=== PATIENT | female | born 1940 | race African-American/Black ===

== ENCOUNTER 2020-03-10 13:35 | Observation (INO) | payer BC ==
[~2020-03-10] VITALS: Ht 165.1 cm; Wt 44.9 kg
[2020-03-10 13:50] VITALS: BP 135/65
--- NOTE | 2020-03-10 14:34 | Emergency Room Report ---
History of Present Illness General Chief Complaint: Generalized Weakness Source: Patient Present Illness HPI Apparently the patient has been deteriorating over the last month. She is not been eating well and losing weight. She is by herself. On Sunday she fell and was unable to get up from the floor. She refused to go into the hospital at that time. She was evaluated by paramedics and they said that her blood pressure may have been a problem. There is no evidence of head injury at that time. Her son and his took her in and has been watching over her. Today she was weak and when he sat her up her eyes rolled back and she lost consciousness. He lay her back down. Paramedics were summoned. She was orthostatic not by measured blood pressure but she almost passed out with her sitting her up. Son denies chest pain, fevers, nausea, vomiting or diarrhea. She moved her bowels twice yesterday with no problem. She is now complaining of dysuria and she has been urinating. He noted that she is had some pallor. Today was first time c/o lower back pain. She is complained of right shoulder pain for 2 years. Son notes decreased recent memory over the past 1 year or longer. History of hypertension Allergies: Coded Allergies: No Known Allergies (Unverified , 03/10/20) COVID-19 Screening Contact w/high risk pt: No Experienced COVID-19 symptoms?: No COVID-19 Testing performed CIRCUS RIDER: No Patient History Past Medical History: see triage record Social History: Denies: smoking, alcohol use, drug use Social History Narrative lives by herself Reviewed Nursing Documentation: PMH: Agreed; PSxH: Agreed Nursing Documentation-PMH Hx Hypertension: Yes Review of Systems All Other Systems: negative except mentioned in HPI Physical Exam Vital Signs Date Time Temp Pulse Resp B/P (MAP) Pulse Ox O2 Delivery O2 Flow Rate FiO2 03/10/20 13:31 97.3 73 16 135/65 (88) 96 Room Air Sp02 EP Interpretation: reviewed, normal General Appearance: no apparent distress, alert, thin, other - Frail eyes closed Head: normocephalic Eyes: bilateral eye PERRL, bilateral eye conjunctivae pale ENT: dry mucus membranes Neck: supple Respiratory: lungs clear, normal breath sounds Cardiovascular #1: regular rate, rhythm Cardiovascular #2: 2+ radial (R) Gastrointestinal: normal inspection, normal bowel sounds, non tender, no mass, non-distended Rectal: heme negative stool Musculoskeletal: back normal, normal range of motion, gait/station normal Neurologic: alert, sql bi developer III-XII nml as tested - X2, oriented, sensory intact, cerebellar normal, speech normal, other - Prefers eyes closed Psychiatric: depressed affect - Initially put in improved Skin: no rash, warm/dry, other - Some pallor Medical Decision Making Diagnostic Impression: Primary Impression: Syncope Qualified Codes: R55 - Syncope and collapse Additional Impressions: Failure to thrive Qualified Codes: R62.7 - Adult failure to thrive Declining functional status Elevated TSH ER Course Patient presents post syncopal episode and functional decline. Differential includes dehydration, acute myocardial infarction, anemia, occult infection amongst others. Evaluation with EKG, chest x-ray and labs. Patient will receive IV hydration. Patient placed on a security monitor. EKG normal sinus rhythm biatrial enlargement right bundle branch block rate of 68. CXR granulomatous disease. CBC normal WBC and H/H. CMP with elevated BUN 20, creat 1.1. K slightly low. Improved mentation with IV hydration. CT with small vessel disease. 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 Family request influenza vaccination. Ordered. Discussed need for social insurance administrator - consult ordered. Patient admitted to the hospital for further cardiac monitoring and evaluation. Patient examined by Dr. Navas in the emergency department. Laboratory Tests Test 03/10/20 13:49 03/10/20 13:50 03/10/20 14:50 03/10/20 17:05 POC Whole Blood Glucose 117 MG/DL (74-106) H White Blood Count 3.3 K/UL (4.8-10.8) L Red Blood Count 4.18 M/UL (4.20-5.40) L Hemoglobin 13.1 G/DL (12.0-16.0) Hematocrit 41.1 % (37.0-47.0) Mean Corpuscular Volume 98 FL (80-99) Mean Corpuscular Hemoglobin 31.4 PG (27.0-31.0) H Mean Corpuscular Hemoglobin Concent 31.9 G/DL (32.0-36.0) L Red Cell Distribution Width 12.0 % (11.6-14.8) Platelet Count 213 K/UL (150-450) Mean Platelet Volume 7.3 FL (6.5-10.1) Neutrophils (%) (Auto) % (45.0-75.0) Lymphocytes (%) (Auto) % (20.0-45.0) Monocytes (%) (Auto) % (1.0-10.0) Eosinophils (%) (Auto) % (0.0-3.0) Basophils (%) (Auto) % (0.0-2.0) Differential Total Cells Counted 100 Neutrophils % (Manual) 50 % (45-75) Lymphocytes % (Manual) 40 % (20-45) Monocytes % (Manual) 9 % (1-10) Eosinophils % (Manual) 1 % (0-3) Basophils % (Manual) 0 % (0-2) Band Neutrophils 0 % (0-8) Platelet Estimate Adequate Platelet Morphology Normal Red Blood Cell Morphology Normal Prothrombin Time 10.6 SEC (9.30-11.50) Prothrombin Time INR 1.0 (0.9-1.1) Activated Partial Thromboplast Time 22 SEC (23-33) L D-Dimer 0.72 mg/L FEU (0.00-0.49) H Sodium Level 131 MMOL/L (136-145) L Potassium Level 3.3 MMOL/L (3.5-5.1) L Chloride Level 95 MMOL/L (98-107) L Carbon Dioxide Level 29 MMOL/L (21-32) Anion Gap 7 mmol/L (5-15) Blood Urea Nitrogen 20 mg/dL (7-18) H Creatinine 1.1 MG/DL (0.55-1.30) Estimated Glomerular Filtration Rate 58.1 mL/min (>60) Glucose Level 123 MG/DL (74-106) H Lactic Acid Level 1.50 mmol/L (0.4-2.0) Calcium Level 9.0 MG/DL (8.5-10.1) Ferritin 95 NG/ML (8-388) Total Bilirubin 0.6 MG/DL (0.2-1.0) Aspartate Amino Transferase (AST) 23 U/L (15-37) Alanine Aminotransferase (ALT) 22 U/L (12-78) Alkaline Phosphatase 44 U/L (46-116) L Lactate Dehydrogenase 185 U/L (81-234) Total Creatine Kinase 156 U/L (26-308) Creatine Kinase MB 2.4 NG/ML (0.0-3.6) Creatine Kinase MB Relative Index 1.5 Troponin I 0.000 ng/mL (0.000-0.056) C-Reactive Protein, Quantitative < 0.4 mg/dL (0.00-0.90) Pro-B-Type Natriuretic Peptide 60 pg/mL (0-125) Total Protein 7.2 G/DL (6.4-8.2) Albumin 3.7 G/DL (3.4-5.0) Globulin 3.5 g/dL Albumin/Globulin Ratio 1.1 (1.0-2.7) Lipase 163 U/L (73-393) Stool Occult Blood Negative (NEGATIVE) Urine Color Pale yellow Urine Appearance Slightly cloudy Urine pH 7 (4.5-8.0) Urine Specific [place] 1.010 (1.005-1.035) Urine Protein Negative (NEGATIVE) Urine Glucose (UA) Negative (NEGATIVE) Urine Ketones 2+ (NEGATIVE) H Urine Blood Negative (NEGATIVE) Urine Nitrite Negative (NEGATIVE) Urine Bilirubin Negative (NEGATIVE) Urine Urobilinogen Normal MG/DL (0.0-1.0) Urine Leukocyte Esterase 2+ (NEGATIVE) H Urine RBC 0-2 /HPF (0 - 2) Urine WBC 2-4 /HPF (0 - 2) Urine Squamous Epithelial Cells Occasional /LPF Urine Bacteria Occasional /HPF (NONE) Microbiology Date/Time Source Procedure Growth Status 03/10/20 13:50 Nasopharynx SARS-CoV-2 RdRp Gene Assay - Final Complete EKG Diagnostic Results Rate: normal Rhythm: NSR ST Segments: no acute changes - Right bundle branch block and left atrial enlargement Rhythm Strip Diag. Results EP Interpretation: yes Rhythm: NSR, no PVC's, no ectopy Chest X-Ray Diagnostic Results Chest X-Ray Diagnostic Results : Chest X-Ray Ordered: Yes # of Views/Limited/Complete: 1 View Indication: Other EP Interpretation: Yes Interpretation: no consolidation, no effusion, no pneumothorax Impression: No acute disease Electronically Signed by: Electronically signed by Franklyn Aguero MD CT/MRI/US Diagnostic Results CT/MRI/US Diagnostic Results #1: Imaging Test Ordered: Head Impression Small vessel disease CT/MRI/US Diagnostic Results #2: Imaging Test Ordered: Lumbar spine Impression Degenerative disease no fractures Last Vital Signs Date Time Temp Pulse Resp B/P (MAP) Pulse Ox O2 Delivery O2 Flow Rate FiO2 11/25/20 20:00 76 03/10/20 18:15 97.3 19 112/52 100 Room Air Status: improved Disposition: ADMITTED INPATIENT Condition: Serious Franklyn Aguero MD Mar 10, 2020 14:34
[2020-03-10 14:42] LABS: HEMATOCRIT 41.1 % (37.0-47.0); HEMOGLOBIN 13.1 G/DL (12.0-16.0); MEAN CORPUSCULAR VOLUME 98 FL (80-99); PLATELET COUNT 213 K/UL (150-450); RED BLOOD COUNT 4.18 M/UL (4.20-5.40); WHITE BLOOD COUNT 3.3 K/UL (4.8-10.8)
[2020-03-10 14:48] LABS: ANION GAP 7 mmol/L (5-15); BLOOD UREA NITROGEN 20 mg/dL (7-18); CARBON DIOXIDE 29 MMOL/L (21-32); CHLORIDE 95 MMOL/L (98-107); CREATININE 1.1 MG/DL (0.55-1.30); POTASSIUM 3.3 MMOL/L (3.5-5.1); SODIUM 131 MMOL/L (136-145)
[2020-03-10 14:54] VITALS: BP 135/65
[2020-03-10 15:04] LABS: ALANINE AMINOTRANSFERASE 22 U/L (12-78); ALBUMIN 3.7 G/DL (3.4-5.0); ALBUMIN/GLOBULIN RATIO 1.1 (1.0-2.7); ALKALINE PHOSPHATASE 44 U/L (46-116); ASPARTATE AMINO TRANSFERASE 23 U/L (15-37); BILIRUBIN,TOTAL 0.6 MG/DL (0.2-1.0); CKMB 2.4 NG/ML (0.0-3.6); CREATINE KINASE 156 U/L (26-308); FERRITIN 95 NG/ML (8-388); LACTATE DEHYDROGENASE 185 U/L (81-234)
[2020-03-10] MEDS ORDERED: NS w/KCl 40mEq 1,000 ML IV SCH (15:30)
[2020-03-10 16:00] VITALS: BP 140/57
--- NOTE | 2020-03-10 16:49 | Diagnostic Imaging Report ---
Indication: Shortness of breath Technique: One view of the chest Comparison: 12/07/2009 Findings: Calcified granulomata at the right lung base are again demonstrated. Lungs pleural spaces are otherwise clear. The heart size is normal. There is tortuous and calcified Impression: No acute process Evidence of old granulomatous disease
--- NOTE | 2020-03-10 16:54 | Diagnostic Imaging Report ---
Indication: Syncope Technique: spiral acquisitions obtained through the brain. Angled axial and coronal 5 x 5 mm slices were reconstructed. No IV contrast utilized. Radiation dose was minimized using automated exposure control Total dose length product 955 mGycm. CTDIvol(s) 53 mGy Comparison: none FINDINGS: No acute hemorrhage or edema. No mass effect or midline shift. There is age-related enlargement of the ventricles and extra axial CSF spaces. There is periventricular deep white matter ischemic change. Normal [place]-white differentiation. There is evidence of prior bilateral cataract surgery. Visualized sinuses are unremarkable. Intact calvarium. IMPRESSION: Chronic and age-related changes. Negative for acute intracranial bleed or mass effect The CT scanner at [facility] [place] is accredited by the [employer] and the scans are performed using protocols designed to limit radiation exposure to as low as reasonably achievable to attain images of sufficient resolution adequate for diagnostic evaluation
[2020-03-10] MEDS ORDERED: METOPROLOL TART25 MG ORAL (16:56)
--- NOTE | 2020-03-10 16:58 | Diagnostic Imaging Report ---
Indications: Pain, trauma Technique: Spiral acquisitions obtained through the lumbar spine. Multiplanar reconstructions were generated. No IV contrast utilized. Total dose length product 207 mGycm. CTDIvol(s) 5 mGy. Dose reduction achieved using automated exposure control Comparison: none Findings: There is mild anterior offset of L4 on L5 and of L5 on S1. Otherwise normal bony alignment. No acute fractures. No dislocation. Vertebral body heights are preserved. There is mild degenerative proliferative disc disease with vacuum formation at multiple levels. At L2-3, there is mild circumferential annular bulge with posterior osteophyte complex. This does not significantly narrow the spinal canal or the neural foramina. At L3-4 and L4-5 there is bilateral facet arthrosis. No significant spinal canal or neural foraminal stenosis. At L5-S1, there is bilateral facet arthrosis. No significant neural foraminal stenosis or spinal canal stenosis. The bladder is distended. Calcifications are seen within the uterus, likely multiple fibroids. There is mild rectal distention by feces., there is circumferential annular bulge with posterior osteophytes. Impression: No acute bony trauma Mild degenerative changes, as detailed above Distended bladder The CT scanner at [facility] is accredited by the [employer] and the scans are performed using protocols designed to limit radiation exposure to as low as reasonably achievable to attain images of sufficient resolution adequate for diagnostic evaluation.
[2020-03-10 17:13] LABS: APPEARANCE,URINE SLIGHTLY CLOUDY; BILIRUBIN, URINE NEGATIVE (NEGATIVE); COLOR,URINE PALE YELLOW; GLUCOSE, URINE (UA) NEGATIVE (NEGATIVE); KETONES,URINE 2+ (NEGATIVE); LEUKOCYTE ESTERASE ,URINE 2+ (NEGATIVE); NITRITE,URINE NEGATIVE (NEGATIVE); PH,URINE 7 (4.5-8.0); PROTEIN,URINE NEGATIVE (NEGATIVE); UROBILINOGEN,URINE NORMAL MG/DL (0.0-1.0)
[2020-03-10 17:22] VITALS: BP 128/57
[2020-03-10] MEDS ORDERED: Flu Vaccine Quadrivalent IM ONE (17:30)
[2020-03-10] MEDS ORDERED: Flu Vac High-Dose for Pts 65 Years and Older IM ONE (18:00)
[2020-03-10] MEDS ORDERED: Nitroglycerin Subl 0.4mg tab SL PRN (18:40)
--- NOTE | 2020-03-10 18:40 | History & Physical ---
Misael Navas MD Mar 10, 2020 18:40
--- NOTE | 2020-03-10 18:44 | History and Physical ---
History of Present Illness General Date patient seen: Mar 10, 2020 Time patient seen: 18:00 Reason for Hospitalization: Generalized Weakness Present Illness HPI 79 y/o AA Female pt BIBA from home for generalized weakness x 3 days. Per ED report, the pt reported that she had a syncopal episode lasting a "few seconds" 3 days ago. she recently moved in with family and states that family witnessed the syncopal episode. EMS report that pt had a near syncopal episode when the tried to sit her up. pt denies any head trauma or injury. pt denied N/V/D, has also had decreased appetite x3 days. pt is AOx3, states that she feels "very tired." Initial workup in the ED showed EKG with RBBB and no STT changes or high degree EKG. Admission was requested. The patient denies any prior cardiac history, no CT, no CVA, no CHF. She does endorse weakness and poor appetite in the recent days. Allergies: Coded Allergies: No Known Allergies (Unverified , 03/10/20) COVID-19 Screening Contact w/high risk pt: No Experienced COVID-19 symptoms?: No Medication History Scheduled Metoprolol Tartrate* (Metoprolol Tartrate*), 25 MG ORAL EVERY 12 HOURS, (Re ported) Patient History Healthcare decision maker Resuscitation status Advanced Directive on File Review of Systems All Other Systems: negative except mentioned in HPI Physical Exam General Appearance: WD/WN, no apparent distress Lines, tubes and drains: peripheral HEENT: normocephalic Neck: non-tender Respiratory/Chest: lungs clear Cardiovascular/Chest: normal peripheral pulses Abdomen: non tender Skin Exam: normal pigmentation Neurologic: rat breeder II-XII 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 normal Last 24 Hour Vital Signs Date Time Temp Pulse Resp B/P (MAP) Pulse Ox O2 Delivery O2 Flow Rate FiO2 03/10/20 18:15 97.3 85 19 112/52 100 Room Air 03/10/20 17:22 97.3 70 18 128/57 100 Room Air 03/10/20 16:00 97.3 75 19 140/57 100 Room Air 03/10/20 13:50 73 16 Room Air 03/10/20 13:50 97.3 86 16 135/65 96 Room Air 03/10/20 13:31 97.3 73 16 135/65 (88) 96 Room Air Laboratory Tests Test 03/10/20 13:49 03/10/20 13:50 03/10/20 14:50 03/10/20 17:05 POC Whole Blood Glucose 117 MG/DL (74-106) H White Blood Count 3.3 K/UL (4.8-10.8) L Red Blood Count 4.18 M/UL (4.20-5.40) L Hemoglobin 13.1 G/DL (12.0-16.0) Hematocrit 41.1 % (37.0-47.0) Mean Corpuscular Volume 98 FL (80-99) Mean Corpuscular Hemoglobin 31.4 PG (27.0-31.0) H Mean Corpuscular Hemoglobin Concent 31.9 G/DL (32.0-36.0) L Red Cell Distribution Width 12.0 % (11.6-14.8) Platelet Count 213 K/UL (150-450) Mean Platelet Volume 7.3 FL (6.5-10.1) Neutrophils (%) (Auto) % (45.0-75.0) Lymphocytes (%) (Auto) % (20.0-45.0) Monocytes (%) (Auto) % (1.0-10.0) Eosinophils (%) (Auto) % (0.0-3.0) Basophils (%) (Auto) % (0.0-2.0) Differential Total Cells Counted 100 Neutrophils % (Manual) 50 % (45-75) Lymphocytes % (Manual) 40 % (20-45) Monocytes % (Manual) 9 % (1-10) Eosinophils % (Manual) 1 % (0-3) Basophils % (Manual) 0 % (0-2) Band Neutrophils 0 % (0-8) Platelet Estimate Adequate Platelet Morphology Normal Red Blood Cell Morphology Normal Prothrombin Time 10.6 SEC (9.30-11.50) Prothromb Time International Ratio 1.0 (0.9-1.1) Activated Partial Thromboplast Time 22 SEC (23-33) L D-Dimer 0.72 mg/L FEU (0.00-0.49) H Sodium Level 131 MMOL/L (136-145) L Potassium Level 3.3 MMOL/L (3.5-5.1) L Chloride Level 95 MMOL/L (98-107) L Carbon Dioxide Level 29 MMOL/L (21-32) Anion Gap 7 mmol/L (5-15) Blood Urea Nitrogen 20 mg/dL (7-18) H Creatinine 1.1 MG/DL (0.55-1.30) Estimat Glomerular Filtration Rate 58.1 mL/min (>60) Glucose Level 123 MG/DL (74-106) H Lactic Acid Level 1.50 mmol/L (0.4-2.0) Calcium Level 9.0 MG/DL (8.5-10.1) Ferritin 95 NG/ML (8-388) Total Bilirubin 0.6 MG/DL (0.2-1.0) Aspartate Amino Transf (AST/SGOT) 23 U/L (15-37) Alanine Aminotransferase (ALT/SGPT) 22 U/L (12-78) Alkaline Phosphatase 44 U/L (46-116) L Lactate Dehydrogenase 185 U/L (81-234) Total Creatine Kinase 156 U/L (26-308) Creatine Kinase MB 2.4 NG/ML (0.0-3.6) Creatine Kinase MB Relative Index 1.5 Troponin I 0.000 ng/mL (0.000-0.056) C-Reactive Protein, Quantitative < 0.4 mg/dL (0.00-0.90) Pro-B-Type Natriuretic Peptide 60 pg/mL (0-125) Total Protein 7.2 G/DL (6.4-8.2) Albumin 3.7 G/DL (3.4-5.0) Globulin 3.5 g/dL Albumin/Globulin Ratio 1.1 (1.0-2.7) Lipase 163 U/L (73-393) Thyroid Stimulating Hormone (TSH) 6.115 uiU/mL (0.358-3.740) Stool Occult Blood Negative (NEGATIVE) Urine Color Pale yellow Urine Appearance Slightly cloudy Urine pH 7 (4.5-8.0) Urine Specific [place] 1.010 (1.005-1.035) Urine Protein Negative (NEGATIVE) Urine Glucose (UA) Negative (NEGATIVE) Urine Ketones 2+ (NEGATIVE) H Urine Blood Negative (NEGATIVE) Urine Nitrite Negative (NEGATIVE) Urine Bilirubin Negative (NEGATIVE) Urine Urobilinogen Normal MG/DL (0.0-1.0) Urine Leukocyte Esterase 2+ (NEGATIVE) H Urine RBC 0-2 /HPF (0 - 2) Urine WBC 2-4 /HPF (0 - 2) Urine Squamous Epithelial Cells Occasional /LPF Urine Bacteria Occasional /HPF (NONE) Microbiology Date/Time Source Procedure Growth Status 03/10/20 13:50 Nasopharynx SARS-CoV-2 RdRp Gene Assay - Final Complete Height (Feet): 5 Height (Inches): 6.00 Weight (Pounds): 110 Medications Current Medications Medications (Trade) Dose Ordered Sig/Julissa Route PRN Reason Start Time Stop Time Status Last Admin Dose Admin Acetaminophen (Tylenol) 650 mg Q4H PRN ORAL Mild Pain (Pain Scale 1-3) 03/10/20 18:30 04/09/20 18:29 UNV Acetaminophen (Tylenol) 650 mg Q4H PRN ORAL Temp >100.5 03/10/20 18:30 04/09/20 18:29 UNV Aspirin (ASA) 81 mg DAILY ORAL 03/11/20 09:00 04/25/20 08:59 UNV Dextrose (Dextrose 50%) 25 ml Q30M PRN IV Hypoglycemia 03/10/20 18:30 06/08/20 18:29 UNV Dextrose (Dextrose 50%) 50 ml Q30M PRN IV Hypoglycemia 03/10/20 18:30 06/08/20 18:29 UNV Docusate Sodium (Colace) 100 mg EVERY 12 HOURS ORAL 03/10/20 21:00 04/09/20 20:59 UNV Enoxaparin Sodium (Lovenox) 40 mg Q24H SUBQ 03/10/20 19:30 06/08/20 19:29 UNV Famotidine (Pepcid) 20 mg BID ORAL 03/11/20 09:00 06/09/20 08:59 UNV Nitroglycerin (Ntg) 0.4 mg Q5M PRN SL Prn Chest Pain 03/10/20 18:30 04/09/20 18:29 UNV Ondansetron HCl (Zofran) 4 mg Q6H PRN IVP Nausea & Vomiting 03/10/20 18:30 04/09/20 18:29 UNV Potassium Chloride/Sodium Chloride 1,000 ml @ 150 mls/hr Q6H40M IV 03/10/20 15:30 04/09/20 15:29 03/10/20 15:41 Sodium Chloride 1,000 ml @ 75 mls/hr DAILY IV 03/10/20 18:30 04/09/20 18:29 UNV Temazepam (Restoril) 15 mg DAILYPRN PRN ORAL Insomnia 03/10/20 18:30 03/17/20 18:29 UNV Objective Narrative EKG: RBBB at 67 bpm CXR: no acute infiltrate Assessment/Plan Assessment/Plan: 79 y/o F admitted to the Hospital for: # Near syncope vs syncope Ddx include vasovagal vs dehydration vs arrhythmia vs other On exam no carotid bruits or cardiac murmurs identified. TTE and Carotid US ordered Follow up telemetry PT evaluation check orthostatics in AM # Hypertension Will HOLD metoprolol ( ACCOUNT EXECUTIVE KEY ACCOUNTS med ) and monitor BP for now as this might be the culprit. # DVT ppx # GI ppx FULL CODE Misael Navas MD Mar 10, 2020 18:44
[2020-03-10] MEDS ORDERED: TRIAMTERENE-HC1 EAC7 ORAL (19:13)
[2020-03-10 20:00] VITALS: BP 116/68
[2020-03-10] MEDS: Docusate 100mg cap ORAL SCH (21:25)
[2020-03-10] MEDS: Enoxaparin 40mg Inj SUBQ SCH (21:27)
[2020-03-11] VITALS: BP 111/65
[2020-03-11 04:00] VITALS: BP 115/69
[2020-03-11 08:00] VITALS: BP 127/61
[2020-03-11 08:52] LABS: BASOPHILS % (AUTO) 0.7 % (0.0-2.0); EOSINOPHILS % (AUTO) 0.2 % (0.0-3.0); HEMATOCRIT 35.4 % (37.0-47.0); HEMOGLOBIN 11.8 G/DL (12.0-16.0); LYMPHOCYTES % (AUTO) 24.8 % (20.0-45.0); MEAN CORPUSCULAR VOLUME 94 FL (80-99); MONOCYTES % (AUTO) 9.2 % (1.0-10.0); NEUTROPHILS % (AUTO) 65.1 % (45.0-75.0); PLATELET COUNT 199 K/UL (150-450); RED BLOOD COUNT 3.76 M/UL (4.20-5.40); RED CELL DISTRIBUTION WIDTH 11.8 % (11.6-14.8); WHITE BLOOD COUNT 4.8 K/UL (4.8-10.8)
[2020-03-11] MEDS: Docusate 100mg cap ORAL SCH ×2 (09:11→20:47)
[2020-03-11] MEDS: Aspirin Baby 81mg ORAL SCH (09:11)
[2020-03-11 09:17] LABS: ANION GAP 10 mmol/L (5-15); BLOOD UREA NITROGEN 12 mg/dL (7-18); CALCIUM 8.4 MG/DL (8.5-10.1); CARBON DIOXIDE 22 MMOL/L (21-32); CHLORIDE 97 MMOL/L (98-107); CHOLESTEROL 188 MG/DL (< 200); CREATININE 0.7 MG/DL (0.55-1.30); HDL CHOLESTEROL 71 MG/DL (40-60); POTASSIUM 3.6 MMOL/L (3.5-5.1); SODIUM 129 MMOL/L (136-145); TRIGLYCERIDES 75 MG/DL (30-150)
--- NOTE | 2020-03-11 11:59 | General Progress Note ---
Subjective Date patient seen: Mar 11, 2020 ROS Limited/Unobtainable: No Allergies: Coded Allergies: No Known Allergies (Unverified , 03/10/20) All Systems: reviewed and negative except above Subjective Patient feels well today. Denies dizziness or lightheadedness. Objective Last 24 Hour Vital Signs Date Time Temp Pulse Resp B/P (MAP) Pulse Ox O2 Delivery O2 Flow Rate FiO2 03/11/20 09:00 Room Air 03/11/20 08:01 82 92 94 03/11/20 08:00 95 03/11/20 08:00 97.7 106 18 127/61 (83) 98 03/11/20 04:00 97.8 69 18 115/69 (84) 98 03/11/20 04:00 75 03/11/20 00:00 77 03/11/20 00:00 97.4 65 18 111/65 (80) 97 03/10/20 21:00 Room Air 03/10/20 20:00 97.5 73 18 116/68 (84) 98 03/10/20 20:00 76 03/10/20 18:50 Room Air 03/10/20 18:15 97.3 85 19 112/52 100 Room Air 03/10/20 17:22 97.3 70 18 128/57 100 Room Air 03/10/20 16:00 97.3 75 19 140/57 100 Room Air 03/10/20 13:50 73 16 Room Air 03/10/20 13:50 97.3 86 16 135/65 96 Room Air 03/10/20 13:31 97.3 73 16 135/65 (88) 96 Room Air Intake and Output 03/10/20 03/11/20 19:00 07:00 Intake Total 2450 ml Balance 2450 ml Intake IV Total 2450 ml # Voids 1 1 # Bowel Movements 1 Laboratory Tests 03/10/20 13:49: POC Whole Blood Glucose 117H 03/10/20 13:50: White Blood Count 3.3L, Red Blood Count 4.18L, Hemoglobin 13.1, Hematocrit 41.1, Mean Corpuscular Volume 98, Mean Corpuscular Hemoglobin 31.4H, Mean Corpuscular Hemoglobin Concent 31.9L, Red Cell Distribution Width 12.0, Platelet Count 213, Mean Platelet Volume 7.3, Neutrophils (%) (Auto) , Lymphocytes (%) (Auto) , Monocytes (%) (Auto) , Eosinophils (%) (Auto) , Basophils (%) (Auto) , Different ial Total Cells Counted 100, Neutrophils % (Manual) 50, Lymphocytes % (Manual) 40, Monocytes % (Manual) 9, Eosinophils % (Manual) 1, Basophils % (Manual) 0, Band Neutrophils 0, Platelet Estimate Adequate, Platelet Morphology Normal, Red Blood Cell Morphology Normal, Prothrombin Time 10.6, Prothromb Time International Ratio 1.0, Activated Partial Thromboplast Time 22L, D-Dimer 0.72H, Sodium Level 131L, Potassium Level 3.3L, Chloride Level 95L, Carbon Dioxide Level 29, Anion Gap 7, Blood Urea Nitrogen 20H, Creatinine 1.1, Estimat Glomerular Filtration Rate 58.1, Glucose Level 123H, Lactic Acid Level 1.50, Calcium Level 9.0, Ferritin 95, Total Bilirubin 0.6, Aspartate Amino Transf (AST/SGOT) 23, Alanine Aminotransferase (ALT/SGPT) 22, Alkaline Phosphatase 44L, Lactate Dehydrogenase 185, Total Creatine Kinase 156, Creatine Kinase MB 2.4, Creatine Kinase MB Relative Index 1.5, Troponin I 0.000, C-Reactive Protein, Quantitative < 0.4, Pro-B-Type Natriuretic Peptide 60, Total Protein 7.2, Albumin 3.7, Globulin 3.5, Albumin/Globulin Ratio 1.1, Lipase 163, Thyroid Stimulating Hormone (TSH) 6.115H 03/10/20 14:50: Stool Occult Blood Negative 03/10/20 17:05: Urine Color Pale yellow, Urine Appearance Slightly cloudy, Urine pH 7, Urine Specific [place] 1.010, Urine Protein Negative, Urine Glucose (UA) Negative, Urine Ketones 2+H, Urine Blood Negative, Urine Nitrite Negative, Urine Bilirubin Negative, Urine Urobilinogen Normal, Urine Leukocyte Esterase 2+H, Urine RBC 0- 2, Urine WBC 2-4, Urine Squamous Epithelial Cells Occasional, Urine Bacteria Occasional 03/11/20 07:30: White Blood Count 4.8, Red Blood Count 3.76L, Hemoglobin 11.8L, Hematocrit 35.4L , Mean Corpuscular Volume 94, Mean Corpuscular Hemoglobin 31.4H, Mean Corpuscular Hemoglobin Concent 33.4, Red Cell Distribution Width 11.8, Platelet Count 199, Mean Platelet Volume 7.5, Neutrophils (%) (Auto) 65.1, Lymphocytes (%) (Auto) 24.8, Monocytes (%) (Auto) 9.2, Eosinophils (%) (Auto) 0.2, Basophils (%) (Auto) 0.7, Sodium Level 129L, Potassium Level 3.6, Chloride Level 97L, Carbon Dioxide Level 22, Anion Gap 10, Blood Urea Nitrogen 12, Creatinine 0.7, Estimat Glomerular Filtration Rate > 60, Glucose Level 90, Hemoglobin A1c 5.8, Calcium Level 8.4L, Triglycerides Level 75, Cholesterol Level 188, LDL Cholesterol 108H, HDL Cholesterol 71H, Cholesterol/HDL Ratio 2.6L Height (Feet): 5 Height (Inches): 5.00 Weight (Pounds): 99 General Appearance: WD/WN EENT: PERRL/EOMI Neck: non-tender Cardiovascular: normal rate Respiratory/Chest: lungs clear Abdomen: soft Extremities: normal range of motion Neurologic: suit maker II-XII grossly normal Assessment/Plan Status: stable Assessment/Plan: 79 y/o F admitted to the Hospital for: # Near syncope vs syncope Ddx include vasovagal vs dehydration vs arrhythmia vs other On exam no carotid bruits or cardiac murmurs identified. TTE and Carotid US ordered Follow up telemetry PT evaluation is needed prior to discharge check orthostatics and discussed with RN today. # Hypertension Will HOLD metoprolol ( AWNING HANGER med ) and monitor BP for now as this might be the culprit. # DVT ppx # GI ppx FULL CODE Misael Navas MD Mar 11, 2020 11:59
[2020-03-11 12:00] VITALS: BP 143/61
--- NOTE | 2020-03-11 12:45 | Diagnostic Imaging Report ---
EXAM: US Duplex Bilateral Extracranial Arteries CLINICAL HISTORY: SYNCOPE TECHNIQUE: Real-time duplex ultrasound scan of the extracranial arteries integrating B-mode two-dimensional vascular structure, Doppler spectral analysis and color flow Doppler imaging. COMPARISON: None FINDINGS: Right common carotid artery: Unremarkable. No occlusion or significant stenosis on color flow and spectral Doppler imaging. Right internal carotid artery: Peak systolic velocity in the right ICA measures 106.84 cm/s. Calcified plaque in bilateral carotid bulbs. No occlusion or significant stenosis on color flow and spectral Doppler imaging. Right external carotid artery: Unremarkable. No occlusion or significant stenosis on color flow and spectral Doppler imaging. Right vertebral artery: Unremarkable. Antegrade flow. Right ICA/CCA ratio: Unremarkable. Within normal limits. Left common carotid artery: Unremarkable. No occlusion or significant stenosis on color flow and spectral Doppler imaging. Left internal carotid artery: Peak systolic velocity in the left ICA measures 97.61 cm/s. Left external carotid artery: Unremarkable. No occlusion or significant stenosis on color flow and spectral Doppler imaging. Left vertebral artery: Unremarkable. Antegrade flow. Left ICA/CCA ratio: Unremarkable. Within normal limits. Lymph nodes: Unremarkable. No lymphadenopathy. CAROTID STENOSIS REFERENCE USING SRU CRITERIA: Mild - <50% stenosis. ICA PSV is less than 125 cm/second and plaque or intimal thickening is visible. Moderate - 50-69% stenosis. ICA PSV is 125 to 230 cm/second and plaque is visible. Severe - 70-94% stenosis. ICA PSV is more than 230 cm/second and visible plaque with lumen narrowing is seen. Near occlusion - 95-99% stenosis. ICA PSV is variable and significant plaque with luminal narrowing is seen. Occluded - 100% stenosis. No flow identified. IMPRESSION: 1. No hemodynamically significant stenosis in either ICA. 2. Normal antegrade flow in bilateral vertebral arteries.
[2020-03-11 16:00] VITALS: BP 124/60
[2020-03-11 20:00] VITALS: BP 133/67
[2020-03-11] MEDS: Enoxaparin 40mg Inj SUBQ SCH (20:48)
[2020-03-12] VITALS: BP 157/75
[2020-03-12 04:00] VITALS: BP 103/57
[2020-03-12 07:12] LABS: EOSINOPHILS % (AUTO) 0.4 % (0.0-3.0); HEMATOCRIT 30.7 % (37.0-47.0); HEMOGLOBIN 10.9 G/DL (12.0-16.0); LYMPHOCYTES % (AUTO) 29.5 % (20.0-45.0); MEAN CORPUSCULAR VOLUME 89 FL (80-99); NEUTROPHILS % (AUTO) 54.2 % (45.0-75.0); PLATELET COUNT 163 K/UL (150-450); RED BLOOD COUNT 3.44 M/UL (4.20-5.40); RED CELL DISTRIBUTION WIDTH 13.1 % (11.6-14.8); WHITE BLOOD COUNT 4.7 K/UL (4.8-10.8)
[2020-03-12 07:25] LABS: ANION GAP 4 mmol/L (5-15); BLOOD UREA NITROGEN 8 mg/dL (7-18); CALCIUM 8.4 MG/DL (8.5-10.1); CARBON DIOXIDE 27 MMOL/L (21-32); CHLORIDE 96 MMOL/L (98-107); CREATININE 0.9 MG/DL (0.55-1.30); POTASSIUM 3.6 MMOL/L (3.5-5.1); SODIUM 127 MMOL/L (136-145)
[2020-03-12 08:00] VITALS: BP 106/51
[2020-03-12] MEDS: Docusate 100mg cap ORAL SCH (09:08)
[2020-03-12] MEDS: Aspirin Baby 81mg ORAL SCH (09:08)
[2020-03-12 12:00] VITALS: BP 103/58
--- NOTE | 2020-03-12 12:30 | General Progress Note ---
Subjective Date patient seen: Mar 12, 2020 Time patient seen: 11:00 ROS Limited/Unobtainable: Yes Allergies: Coded Allergies: No Known Allergies (Unverified , 03/10/20) All Systems: reviewed and negative except above Subjective Patient feels well today. Denies dizziness or lightheadedness. She was seen by PT and her ambulation is limited - SNF short term was recommended. Objective Last 24 Hour Vital Signs Date Time Temp Pulse Resp B/P (MAP) Pulse Ox O2 Delivery O2 Flow Rate FiO2 03/12/20 12:00 98.1 80 18 103/58 (73) 98 03/12/20 09:00 Room Air 03/12/20 09:00 75 90 103 03/12/20 08:00 97.9 75 18 106/51 (69) 98 03/12/20 08:00 61 03/12/20 04:00 97.9 72 18 103/57 (72) 97 03/12/20 04:00 63 03/12/20 00:00 79 03/12/20 00:00 97.8 91 18 157/75 (102) 99 03/11/20 21:00 Room Air 03/11/20 21:00 92 91 96 03/11/20 20:00 97.9 92 18 133/67 (89) 98 03/11/20 20:00 105 03/11/20 16:00 97.9 109 18 124/60 (81) 98 03/11/20 16:00 91 Intake and Output 03/11/20 03/12/20 19:00 07:00 Intake Total 435 ml 825 ml Balance 435 ml 825 ml Intake Oral 360 ml IV Total 75 ml 825 ml # Voids 3 1 # Bowel Movements 1 1 Laboratory Tests 03/12/20 06:29: White Blood Count 4.7L, Red Blood Count 3.44L, Hemoglobin 10.9L, Hematocrit 30.7L, Mean Corpuscular Volume 89, Mean Corpuscular Hemoglobin 31.7H, Mean Cor puscular Hemoglobin Concent 35.6, Red Cell Distribution Width 13.1, Platelet Count 163, Mean Platelet Volume 7.8, Neutrophils (%) (Auto) 54.2, Lymphocytes (%) (Auto) 29.5, Monocytes (%) (Auto) 14.0H, Eosinophils (%) (Auto) 0.4, Basophi ls (%) (Auto) 2.0, Sodium Level 127L, Potassium Level 3.6, Chloride Level 96L, Carbon Dioxide Level 27, Anion Gap 4L, Blood Urea Nitrogen 8, Creatinine 0.9, Estimat Glomerular Filtration Rate > 60, Glucose Level 80, Calcium Level 8.4L Height (Feet): 5 Height (Inches): 5.00 Weight (Pounds): 99 General Appearance: WD/WN EENT: PERRL/EOMI Neck: non-tender Cardiovascular: normal rate Respiratory/Chest: lungs clear Abdomen: soft Extremities: non-tender Neurologic: superintendent container terminal II-XII grossly normal Assessment/Plan Status: stable Assessment/Plan: 79 y/o F admitted to the Hospital for: # Near syncope vs syncope Ddx include vasovagal vs dehydration vs arrhythmia vs other On exam no carotid bruits or cardiac murmurs identified. TTE and Carotid US ordered Follow up telemetry is PT evaluation is needed prior to discharge check orthostatics and discussed with RN today. 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 # PT evaluation reviewed and the patient is weak, not safe for home discharge. Will discuss with family members possibility of 24/7 supervision vs SNF short term trial prior to discharge. # DVT ppx # GI ppx FULL CODE Misael Navas MD Mar 12, 2020 12:30
[2020-03-12] MEDS ORDERED: ULTRA-LIGHT RO1 EACH MC (13:01)
--- NOTE | 2020-03-12 13:02 | Discharge Instructions ---
Discharge Instructions Discharge Instructions Resume Normal Activity?: Yes For Congestive Heart Failure Reminder Report to your physician any weight gain of 5 pounds or more in one week. Misael Navas MD Mar 12, 2020 13:02
--- NOTE | 2020-03-12 13:06 | Discharge Summary ---
Discharge Summary Hospital Course Date of Admission Mar 10, 2020 at 15:00 Date of Discharge 03/12/20 Admitting Diagnosis syncope generalized weakness HPI Amanda Chicas is a 79 year old female who was admitted on Mar 10, 2020 at 15:00 for Syncope Hospital Course 79 y/o F admitted to the Hospital for: # Near syncope vs syncope Ddx include vasovagal vs dehydration vs arrhythmia vs other On exam no carotid bruits or cardiac murmurs identified. Her TSH level was 6 and recommend PCP TFT follow up. Carotid US ordered and no evidence of vessel stenosis noted. Follow up telemetry is normal and no arrhythmias noted. PT evaluation recommended 24/7 supervision at home which she has per discussion with her cousin [phone]. SNF for short term rehab was declined by family members. FWW ordered for balance and gait training. PCP follow up is planned this coming week. Her prior antihypertensive medications are discontinued as they are likely culprit in her symptoms during admission. Recommend follow up BP check at home and PCP monitoring. # Hypertension Resolved and will stop BP medications. Discharge Medications New Medications: Walker (Ultra-Light Rollator) 1 Each Each EACH MC DAILY PRN, #1 1 Refill Discontinued Medications: Metoprolol Tartrate* (Metoprolol Tartrate*) 25 Mg Tablet 25 MG ORAL EVERY 12 HOURS for HTN, TAB Triamterene/Hydrochlorothiazid (Triamterene-Hctz 37.5-25 Mg Cp) 1 Each Capsule 1 CAP ORAL DAILY for 1 tab, CAP Discharge Condition Upon Discharge: stable Discharge Vital Signs Last Vital Signs Date Time Temp Pulse Resp B/P (MAP) Pulse Ox O2 Delivery O2 Flow Rate FiO2 03/12/20 12:00 98.1 80 18 103/58 (73) 98 03/12/20 09:00 Room Air Discharge Disposition Patient was discharged to Home with family and 24/ supervision Discharge Diagnoses: (1) Elevated TSH (2) Syncope (3) Failure to thrive (4) Generalized muscle weakness (5) Declining functional status Misael Navas MD Mar 12, 2020 13:06
--- NOTE | 2020-03-12 13:42 | Discharge Instructions ---
Discharge Instructions Discharge Instructions Services at Discharge: home health services - PT home health and RN safety evaluation For Congestive Heart Failure Reminder Report to your physician any weight gain of 5 pounds or more in one week. Misael Navas MD Mar 12, 2020 13:42
[2020-03-12 16:00] VITALS: BP 105/62
--- NOTE | 2020-03-12 17:54 | Cardiology Report ---
APPROVED REPORT EKG Measurement Heart [id number] <Conclusion> Normal sinus rhythm Biatrial enlargement Right bundle branch block Abnormal ECG
--- NOTE | 2020-03-15 09:05 | Cardiology Report ---
APPROVED REPORT EXAM: Two-dimensional and M-mode echocardiogram with Doppler and color Doppler. INDICATION Dizziness and Vertigo M-Mode DIMENSIONS IVSd1.0 (0.7-1.1cm)Left Atrium (MM)3.0 (1.6-4.0cm) LVDd3.5 (3.5-5.6cm)Aortic Root2.3 (2.0-3.7cm) PWd0.8 (0.7-1.1cm)Aortic Cusp Exc.1.7 (1.5-2.0cm) IVSs1.4 cmEPSS0.5 (>1.0cm) LVDs1.9 (2.5-4.0cm) PWs1.4 cm <Conclusion> Normal left ventricular chamber size, systolic function and wall motion. Left ventricular ejection fraction estimated to be 65 %. No evidence of left ventricular hypertrophy. No evidence of pericardial effusion. All other cardiac chamber sizes are within normal limits. Focal aortic valve sclerosis with adequate cusp excursion. Thickened mitral valve leaflets with normal excursion. Mitral annulus and aortic root calcification. Pulmonic valve not well visualized. Normal tricuspid valve structure. IVC is normal in size with physiological collapse. A color flow and spectral Doppler study was performed and revealed: Mild aortic regurgitation. No mitral regurgitation. Mitral diastolic velocities suggest mild left ventricular diastolic dysfunction (Grade I). Mild tricuspid regurgitation. Tricuspid systolic velocities suggests peak right ventricular systolic pressure of 44 mmHg, consistent with mild pulmonary hypertension. No pulmonic regurgitation present.
--- NOTE | 2020-03-17 18:36 | Coder Physician Query ---
Clarification is required for compliance, coding accuracy, and to reflect severity of illness for this patient Dear Dr. SMITH Date: 03/17/2020 Cafeteria Attendant/CDS Name: PAUAL SimmonsGORDO "Syncope" documented in Admitting Diagnosis: syncope generalized weakness HPI Amanda Chicas is a 79 year old female who was admitted on Mar 10, 2020 at 15:00 for Syncope Ddx include vasovagal vs dehydration vs arrhythmia vs other On exam no carotid bruits or cardiac murmurs identified. Her TSH level was 6 and recommend PCP TFT follow up. Carotid US ordered and no evidence of vessel stenosis noted. Follow up telemetry is normal and no arrhythmias noted. PT evaluation recommended 24/ supervision at home which she has per discussion with her cousin [phone]. SNF for short term rehab was declined by family members. FWW ordered for balance and gait training. PCP follow up is planned this coming week. Her prior antihypertensive medications are discontinued as they are likely culprit in her symptoms during admission. Please specify the cause of Syncope: [] Unable to determine [] Dehydration [x] Orthostatic Hypotension [] Psychogenic [] Shock [] Dialysis Disequilibrium Syndrome [] Heat [] Other: Physician signature Date Please also document in your Progress Notes and/or Discharge Summary and indicate if the condition was present on admission. MTDD
== END 2020-03-12 16:35 | disposition home or self-care (01) ==
LOC: EDBD 13:35 → EMR 14:00 → 2E 15:00 → INTOOBSV 15:00 → EDBEDREQ 18:02 → 2E 03-11 16:03
DX: I95.1 Orthostatic hypotension (principal); R55 Syncope and collapse; I10 Essential (primary) hypertension; R94.6 Abnormal results of thyroid function studies; R62.7 Adult failure to thrive; M62.81 Muscle weakness (generalized); R53.81 Other malaise
CPT/HCPCS: 36415 ×3; 70450; 71045; 72131; 80048 ×2; 80053; 80061; 81003; 82270; 82550; 82553; 82728; 82962; 83036; 83605; 83615; 83690; 83880; 84439; 84443; 84481; 84484; 85007; 85025 ×3; 85379; 85610; 85730; 86140; 86850; 86900; 86901; 93005; 93306; 93880; 96361; 96365; 97116; 97162; 97530; 99285; G0008; G0378 ×2; J1650 ×2; J7030; Q2035; U0002; 90689